=== PATIENT | male | born 1965 | race African-American/Black ===

== ENCOUNTER 2017-09-01 04:08 | Emergency (ER) | payer SELFPAY | END 2017-09-01 04:40 | disposition left against medical advice (07) | LOC: ER 04:08 | DX: G40.909 Epilepsy, unspecified, not intractable, without status epilepticus (principal); R00.0 Tachycardia, unspecified; E87.6 Hypokalemia; F31.9 Bipolar disorder, unspecified; E11.9 Type 2 diabetes mellitus without complications; I10 Essential (primary) hypertension; F20.9 Schizophrenia, unspecified; Z88.0 Allergy status to penicillin | CPT/HCPCS: 70450; 99284-25 ==